=== PATIENT | male | born 1930 | race Caucasian/White ===

== ENCOUNTER 2020-03-24 17:13 | Inpatient (IN) ==
[2020-03-24] MEDS ORDERED: Acetaminophen 325 MG TABLET PO PRN (19:19)
[2020-03-24] MEDS ORDERED: Naloxone 0.4 MG/ML INJ IVP PRN (19:19)
[2020-03-24] MEDS ORDERED: Ondansetron 4 MG/2 ML VIAL IVP PRN (19:19)
[2020-03-24] MEDS ORDERED: Ringers Solution, Lactated 1,000 ML IVC SCH (19:30)
[2020-03-24 21:51] LABS: Protein/Creatinine Ratio,Urine 0.27 mg/mg (0.00-0.20); Sodium, Urine 31.3 mEq/L
[2020-03-24] MEDS ORDERED: Perflutren Lipid Microsphere 1.3 ML in 0.9 % Sodium Chloride 8.7 ML IVP PRN (21:58)
[2020-03-24] MEDS ORDERED: Enoxaparin Weight Dosing SQ SCH (22:00)
[2020-03-25] MEDS ORDERED: *HR* Enoxaparin 80 MG/0.8 ML SYRINGE SQ SCH (06:00)
[2020-03-25 06:09] LABS: INR 1.2; Prothrombin Time 14.2 Seconds (9.4-12.1)
[2020-03-25 06:23] LABS: Alanine Aminotransferase 16 Units/L (7-52); Albumin 3.6 g/dL (3.5-5.7); Albumin/Globulin Ratio 1.2 (1.1-2.2); Alkaline Phosphatase 53 Units/L (34-104); Aspartate Amino Transferase 34 Units/L (13-39); BUN/Creatinine Ratio 28 (6-26); Blood Urea Nitrogen 33 mg/dL (8-23); Calcium 8.9 mg/dL (8.6-10.3); Carbon Dioxide 26 mEq/L (23-29); Chloride 101 mEq/L (98-107); Chol/HDL Ratio 3.7 (0-4.9); Cholesterol 115 mg/dL (< 200); Glucose 157 mg/dL (70-105); HDL Cholesterol 31 mg/dL (40-59); LDL Cholesterol,Calculated 66 mg/dL (< 100); Lactate Dehydrogenase 250 Units/L (140-271); Magnesium 2.1 mg/dL (1.6-2.6); Osmolality,Calculated 297 (280-300); Phosphorous 3.5 mg/dL (2.7-4.5); Potassium 4.5 mEq/L (3.5-5.1); Sodium 138 mEq/L (136-145); Total Protein 6.6 g/dL (6.4-8.9); Triglycerides 89 mg/dL (< 150); eGFR For African Americans > 60 (> 60); eGFR For Non-African Americans 58 (> 60)
[2020-03-25 06:26] LABS: Basophils % 0.1 %; Hematocrit 50.3 % (37.5-50.1); Immature Granulocytes % 0.3 % (0-4); Immature Platelets 9.5 % (1.1-6.1); Lymphocytes # 1.7 K/mcL (0.6-4.6); Mean Corpuscular HGB Conc 31.8 g/dL (31.6-35.5); Mean Corpuscular Hemoglobin 30.2 pg (28.0-33.3); Mean Corpuscular Volume 94.9 fL (83.0-100.0); Mean Platelet Volume 11.5 fL (9.4-12.4); Monocytes # 0.3 K/mcL (0.0-1.3); Monocytes % 3.5 %; Neutrophils # 7.2 K/mcL (1.6-8.9); Platelet Count 130 K/mcL (140-400); Red Cell Distribution Width 14.6 % (11.5-14.5); Segmented Neutrophils % 78.1 %; White Blood Count 9.3 K/mcL (4.3-11.1)
[2020-03-25 06:36] LABS: Ferritin 366 ng/mL (20-250)
[2020-03-25 08:59] LABS: C-Reactive Protein 163 mg/L (Less than 10)
[2020-03-25] MEDS: Metoprolol XL (24 HR) Succ 25 MG TAB.ER.24H PO SCH (09:19)
[2020-03-25] MEDS: Dexamethasone Sodium Phos/PF 10 MG/ML VIAL IVP SCH (09:19)
[2020-03-25] MEDS: Ipratropium 1 PUFF INHALER IH SCH ×5 (10:25→23:21)
[2020-03-25] MEDS: cefTRIAXone 1,000 MG in Water for inj. (sterile) 10 ML IVP SCH (17:15)
[2020-03-25] MEDS: Azithromycin 500 MG in 0.9 % Sodium Chloride 250 ML IVPB SCH (17:16)
[2020-03-25] MEDS: *HR* Enoxaparin 100 MG/ML SYRINGE SQ SCH (17:19)
[2020-03-26] MEDS: Ipratropium 1 PUFF INHALER IH SCH ×6 (03:41→23:12)
[2020-03-26 06:14] LABS: Basophils % 0.1 %; Hematocrit 47.3 % (37.5-50.1); Immature Granulocytes % 0.5 % (0-4); Lymphocytes # 1.2 K/mcL (0.6-4.6); Lymphocytes % 8.4 %; Mean Corpuscular HGB Conc 31.7 g/dL (31.6-35.5); Mean Corpuscular Hemoglobin 30.2 pg (28.0-33.3); Mean Corpuscular Volume 95.2 fL (83.0-100.0); Mean Platelet Volume 12.3 fL (9.4-12.4); Monocytes # 0.9 K/mcL (0.0-1.3); Monocytes % 6.3 %; Neutrophils # 12.4 K/mcL (1.6-8.9); Platelet Count 139 K/mcL (140-400); Red Blood Count 4.97 M/mcL (4.19-5.50); Red Cell Distribution Width 14.6 % (11.5-14.5); Segmented Neutrophils % 84.7 %
[2020-03-26 06:15] LABS: White Blood Count 14.6 K/mcL (4.3-11.1)
[2020-03-26] MEDS: *HR* Enoxaparin 100 MG/ML SYRINGE SQ SCH ×2 (06:16→17:07)
[2020-03-26 06:39] LABS: Alanine Aminotransferase 34 Units/L (7-52); Albumin 3.4 g/dL (3.5-5.7); Albumin/Globulin Ratio 1.2 (1.1-2.2); Alkaline Phosphatase 59 Units/L (34-104); Aspartate Amino Transferase 67 Units/L (13-39); BUN/Creatinine Ratio 38 (6-26); Bilirubin,Total 0.9 mg/dL (0.3-1.0); Blood Urea Nitrogen 39 mg/dL (8-23); Calcium 8.6 mg/dL (8.6-10.3); Carbon Dioxide 23 mEq/L (23-29); Chloride 102 mEq/L (98-107); Globulin 2.9 g/dL (2.4-3.5); Glucose 130 mg/dL (70-105); Osmolality,Calculated 297 (280-300); Potassium 3.9 mEq/L (3.5-5.1); Sodium 138 mEq/L (136-145); Total Protein 6.3 g/dL (6.4-8.9); eGFR For African Americans > 60 (> 60); eGFR For Non-African Americans > 60 (> 60)
[2020-03-26] MEDS ORDERED: Furosemide 20 MG/2 ML VIAL IVP ONE (07:27)
[2020-03-26] MEDS: Famotidine 20 MG TABLET PO SCH (07:47)
[2020-03-26] MEDS: amLODIPine 5 MG TABLET PO SCH (07:47)
[2020-03-26] MEDS: cefTRIAXone 1,000 MG in Water for inj. (sterile) 10 ML IVP SCH (07:48)
[2020-03-26] MEDS: Metoprolol XL (24 HR) Succ 25 MG TAB.ER.24H PO SCH (07:48)
[2020-03-26] MEDS: Dexamethasone Sodium Phos/PF 10 MG/ML VIAL IVP SCH (07:48)
[2020-03-26] MEDS ORDERED: Dexamethasone 4 MG/ML VIAL IVP ONE (10:11)
[2020-03-26] MEDS ORDERED: Furosemide 40 MG/4 ML VIAL IVP ONE (10:11)
[2020-03-26] MEDS ORDERED: Isovue-370 500 ML BOTTLE IVP ONE (12:15)
[2020-03-26] MEDS: Azithromycin 500 MG in 0.9 % Sodium Chloride 250 ML IVPB SCH (15:21)
[2020-03-26] MEDS ORDERED: Remdesivir 200 MG in 0.9 % Sodium Chloride 100 ML IVPB ONE (16:00)
[2020-03-26] MEDS ORDERED: Melatonin 3 MG TABLET PO ONE (20:17)
[2020-03-27 00:38] LABS: ABG Base Excess 5 mEq/L (-2 to 3); ABG HCO3 29 mEq/L (21-27); ABG Oxygen Saturation 81 % (95-98); ABG PCO2 42 mmHg (35-45); ABG PH 7.45 pH Units (7.32-7.45); ABG PO2 44 mmHg (85-104); ABG TCO2 31 mEq/L (20-26)
[2020-03-27] MEDS ORDERED: Furosemide 40 MG/4 ML VIAL IVP ONE (01:05)
[2020-03-27] MEDS ORDERED: Dexamethasone 4 MG/ML VIAL IVP ONE (01:07)
[2020-03-27] MEDS: Ipratropium 1 PUFF INHALER IH SCH ×6 (04:01→22:54)
[2020-03-27 04:23] LABS: ABG Base Excess 4 mEq/L (-2 to 3); ABG HCO3 29 mEq/L (21-27); ABG Oxygen Saturation 90 % (95-98); ABG PCO2 44 mmHg (35-45); ABG PH 7.44 pH Units (7.32-7.45); ABG PO2 56 mmHg (85-104); ABG TCO2 31 mEq/L (20-26)
[2020-03-27] MEDS: *HR* Enoxaparin 100 MG/ML SYRINGE SQ SCH ×2 (05:16→17:04)
[2020-03-27 05:24] LABS: Basophils % 0.1 %; Hemoglobin 15.4 g/dL (12.9-16.9); Immature Granulocytes % 0.4 % (0-4); Lymphocytes # 1.4 K/mcL (0.6-4.6); Lymphocytes % 11.7 %; Mean Corpuscular HGB Conc 32.1 g/dL (31.6-35.5); Mean Corpuscular Hemoglobin 30.1 pg (28.0-33.3); Mean Corpuscular Volume 93.8 fL (83.0-100.0); Mean Platelet Volume 12.1 fL (9.4-12.4); Monocytes # 0.6 K/mcL (0.0-1.3); Monocytes % 5.2 %; Neutrophils # 9.9 K/mcL (1.6-8.9); Platelet Count 148 K/mcL (140-400); Red Blood Count 5.12 M/mcL (4.19-5.50); Red Cell Distribution Width 14.8 % (11.5-14.5); Segmented Neutrophils % 82.6 %
[2020-03-27 05:25] LABS: INR 1.3; Prothrombin Time 14.4 Seconds (9.4-12.1)
[2020-03-27 05:55] LABS: Alanine Aminotransferase 72 Units/L (7-52); Albumin 3.4 g/dL (3.5-5.7); Albumin/Globulin Ratio 1.1 (1.1-2.2); Alkaline Phosphatase 60 Units/L (34-104); Aspartate Amino Transferase 117 Units/L (13-39); BUN/Creatinine Ratio 35 (6-26); Blood Urea Nitrogen 38 mg/dL (8-23); Calcium 8.6 mg/dL (8.6-10.3); Chloride 100 mEq/L (98-107); Globulin 3.1 g/dL (2.4-3.5); Glucose 138 mg/dL (70-105); Osmolality,Calculated 297 (280-300); Potassium 4.1 mEq/L (3.5-5.1); Sodium 138 mEq/L (136-145); Total Protein 6.5 g/dL (6.4-8.9); eGFR For African Americans > 60 (> 60); eGFR For Non-African Americans > 60 (> 60)
[2020-03-27 06:00] LABS: Carbon Dioxide 28 mEq/L (23-29)
[2020-03-27] MEDS: amLODIPine 5 MG TABLET PO SCH (07:44)
[2020-03-27] MEDS: cefTRIAXone 1,000 MG in Water for inj. (sterile) 10 ML IVP SCH (07:45)
[2020-03-27] MEDS: Metoprolol XL (24 HR) Succ 25 MG TAB.ER.24H PO SCH (07:45)
[2020-03-27] MEDS: Famotidine 20 MG TABLET PO SCH (07:45)
[2020-03-27] MEDS: Furosemide 40 MG/4 ML VIAL IVP SCH (07:45)
[2020-03-27] MEDS ORDERED: Dexamethasone Sodium Phos/PF 10 MG/ML VIAL IVP SCH (09:00)
[2020-03-27] MEDS: Remdesivir 100 MG in 0.9 % Sodium Chloride 100 ML IVPB SCH (15:57)
[2020-03-27] MEDS: Azithromycin 500 MG in 0.9 % Sodium Chloride 250 ML IVPB SCH (17:04)
[2020-03-27] MEDS: Budesonide/Formoterol 160/4.5 1 PUFF INH IH SCH (22:54)
[2020-03-28 02:28] LABS: Basophils % 0.1 %; Hematocrit 45.9 % (37.5-50.1); Hemoglobin 15.1 g/dL (12.9-16.9); Immature Granulocytes % 0.3 % (0-4); Lymphocytes # 1.3 K/mcL (0.6-4.6); Lymphocytes % 10.8 %; Mean Corpuscular HGB Conc 32.9 g/dL (31.6-35.5); Mean Corpuscular Hemoglobin 30.4 pg (28.0-33.3); Mean Corpuscular Volume 92.4 fL (83.0-100.0); Mean Platelet Volume 12.4 fL (9.4-12.4); Monocytes # 0.9 K/mcL (0.0-1.3); Monocytes % 7.5 %; Platelet Count 146 K/mcL (140-400); Red Blood Count 4.97 M/mcL (4.19-5.50); Red Cell Distribution Width 14.6 % (11.5-14.5); Segmented Neutrophils % 81.3 %; White Blood Count 12.4 K/mcL (4.3-11.1)
[2020-03-28 02:35] LABS: INR 1.3; Prothrombin Time 14.8 Seconds (9.4-12.1)
[2020-03-28 02:52] LABS: Alanine Aminotransferase 69 Units/L (7-52); Albumin 3.1 g/dL (3.5-5.7); Albumin/Globulin Ratio 1.1 (1.1-2.2); Alkaline Phosphatase 57 Units/L (34-104); Aspartate Amino Transferase 92 Units/L (13-39); BUN/Creatinine Ratio 45 (6-26); Bilirubin,Total 0.7 mg/dL (0.3-1.0); Blood Urea Nitrogen 47 mg/dL (8-23); C-Reactive Protein 112 mg/L (Less than 10); Calcium 8.2 mg/dL (8.6-10.3); Carbon Dioxide 28 mEq/L (23-29); Chloride 103 mEq/L (98-107); Globulin 2.7 g/dL (2.4-3.5); Glucose 138 mg/dL (70-105); Lactate Dehydrogenase 476 Units/L (140-271); Magnesium 2.5 mg/dL (1.6-2.6); Osmolality,Calculated 302 (280-300); Phosphorous 2.8 mg/dL (2.7-4.5); Sodium 139 mEq/L (136-145); Total Protein 5.8 g/dL (6.4-8.9); eGFR For African Americans > 60 (> 60); eGFR For Non-African Americans > 60 (> 60)
[2020-03-28 03:16] LABS: Ferritin 605 ng/mL (20-250)
[2020-03-28] MEDS: Ipratropium 1 PUFF INHALER IH SCH ×6 (03:56→23:12)
[2020-03-28] MEDS: *HR* Enoxaparin 100 MG/ML SYRINGE SQ SCH ×2 (05:03→18:42)
[2020-03-28] MEDS: Budesonide/Formoterol 160/4.5 1 PUFF INH IH SCH ×2 (07:28→19:49)
[2020-03-28] MEDS: amLODIPine 5 MG TABLET PO SCH (09:13)
[2020-03-28] MEDS: Pantoprazole 40 MG VIAL IVP SCH (09:14)
[2020-03-28] MEDS: Metoprolol XL (24 HR) Succ 25 MG TAB.ER.24H PO SCH (09:14)
[2020-03-28] MEDS: Furosemide 40 MG/4 ML VIAL IVP SCH (09:15)
[2020-03-28] MEDS: cefTRIAXone 1,000 MG in Water for inj. (sterile) 10 ML IVP SCH (09:15)
[2020-03-28] MEDS: Dexamethasone Sodium Phos/PF 10 MG/ML VIAL IVP SCH (10:22)
[2020-03-28] MEDS: Remdesivir 100 MG in 0.9 % Sodium Chloride 100 ML IVPB SCH (16:43)
[2020-03-28] MEDS: Azithromycin 500 MG in 0.9 % Sodium Chloride 250 ML IVPB SCH (18:42)
[2020-03-29 03:21] LABS: Basophils % 0.3 %; Hematocrit 45.1 % (37.5-50.1); Hemoglobin 14.5 g/dL (12.9-16.9); INR 1.3; Immature Granulocytes % 0.4 % (0-4); Lymphocytes # 1.2 K/mcL (0.6-4.6); Lymphocytes % 10.6 %; Mean Corpuscular HGB Conc 32.2 g/dL (31.6-35.5); Mean Corpuscular Volume 93.2 fL (83.0-100.0); Mean Platelet Volume 12.6 fL (9.4-12.4); Monocytes # 0.8 K/mcL (0.0-1.3); Monocytes % 6.9 %; Neutrophils # 9.5 K/mcL (1.6-8.9); Platelet Count 188 K/mcL (140-400); Prothrombin Time 15.3 Seconds (9.4-12.1); Red Blood Count 4.84 M/mcL (4.19-5.50); Red Cell Distribution Width 14.6 % (11.5-14.5); Segmented Neutrophils % 81.8 %; White Blood Count 11.6 K/mcL (4.3-11.1)
[2020-03-29 03:36] LABS: Alanine Aminotransferase 63 Units/L (7-52); Albumin 3.2 g/dL (3.5-5.7); Albumin/Globulin Ratio 1.1 (1.1-2.2); Alkaline Phosphatase 64 Units/L (34-104); Aspartate Amino Transferase 67 Units/L (13-39); BUN/Creatinine Ratio 49 (6-26); Bilirubin,Total 0.9 mg/dL (0.3-1.0); Blood Urea Nitrogen 55 mg/dL (8-23); C-Reactive Protein 108 mg/L (Less than 10); Calcium 8.5 mg/dL (8.6-10.3); Carbon Dioxide 29 mEq/L (23-29); Chloride 98 mEq/L (98-107); Globulin 2.9 g/dL (2.4-3.5); Glucose 140 mg/dL (70-105); Lactate Dehydrogenase 595 Units/L (140-271); Magnesium 2.8 mg/dL (1.6-2.6); Osmolality,Calculated 301 (280-300); Phosphorous 3.1 mg/dL (2.7-4.5); Potassium 4.5 mEq/L (3.5-5.1); Sodium 137 mEq/L (136-145); Total Protein 6.1 g/dL (6.4-8.9); eGFR For African Americans > 60 (> 60); eGFR For Non-African Americans > 60 (> 60)
[2020-03-29] MEDS: Ipratropium 1 PUFF INHALER IH SCH ×6 (03:43→23:49)
[2020-03-29 03:54] LABS: Ferritin 807 ng/mL (20-250)
[2020-03-29] MEDS: *HR* Enoxaparin 100 MG/ML SYRINGE SQ SCH ×2 (05:53→18:06)
[2020-03-29] MEDS: Budesonide/Formoterol 160/4.5 1 PUFF INH IH SCH ×2 (08:16→19:56)
[2020-03-29] MEDS: Metoprolol XL (24 HR) Succ 25 MG TAB.ER.24H PO SCH (08:46)
[2020-03-29] MEDS: amLODIPine 5 MG TABLET PO SCH (08:47)
[2020-03-29] MEDS: Finasteride 5 MG TABLET PO SCH (08:48)
[2020-03-29] MEDS: Multivit/Ca/Min/Fe/FA 1 TAB TABLET PO SCH (08:49)
[2020-03-29] MEDS: cefTRIAXone 1,000 MG in Water for inj. (sterile) 10 ML IVP SCH (08:49)
[2020-03-29] MEDS: Pantoprazole 40 MG VIAL IVP SCH (08:50)
[2020-03-29] MEDS: Dexamethasone Sodium Phos/PF 10 MG/ML VIAL IVP SCH (08:51)
[2020-03-29] MEDS: Furosemide 40 MG/4 ML VIAL IVP SCH (08:52)
[2020-03-29] MEDS: Remdesivir 100 MG in 0.9 % Sodium Chloride 100 ML IVPB SCH (16:10)
[2020-03-29] MEDS ORDERED: traZODone 50 MG TABLET PO PRN (17:31)
[2020-03-29] MEDS: Azithromycin 500 MG in 0.9 % Sodium Chloride 250 ML IVPB SCH (18:03)
[2020-03-29] MEDS: Saline Nasal Spray 44 ML BOTTLE NS SCH ×4 (18:07→23:17)
[2020-03-30] MEDS: Saline Nasal Spray 44 ML BOTTLE NS SCH ×7 (01:07→15:55)
[2020-03-30] MEDS: Ipratropium 1 PUFF INHALER IH SCH ×4 (03:34→14:56)
[2020-03-30] MEDS: *HR* Enoxaparin 100 MG/ML SYRINGE SQ SCH (05:02)
[2020-03-30 06:05] LABS: Basophils # 0.1 K/mcL (0.0-0.2); Basophils % 0.7 %; Hematocrit 46.4 % (37.5-50.1); Hemoglobin 14.9 g/dL (12.9-16.9); Immature Granulocytes % 1.1 % (0-4); Lymphocytes # 1.4 K/mcL (0.6-4.6); Lymphocytes % 12.4 %; Mean Corpuscular HGB Conc 32.1 g/dL (31.6-35.5); Mean Corpuscular Hemoglobin 30.6 pg (28.0-33.3); Mean Corpuscular Volume 95.3 fL (83.0-100.0); Mean Platelet Volume 12.4 fL (9.4-12.4); Monocytes # 0.8 K/mcL (0.0-1.3); Monocytes % 7.2 %; Neutrophils # 8.8 K/mcL (1.6-8.9); Platelet Count 192 K/mcL (140-400); Red Blood Count 4.87 M/mcL (4.19-5.50); Red Cell Distribution Width 14.7 % (11.5-14.5); Segmented Neutrophils % 78.6 %; White Blood Count 11.2 K/mcL (4.3-11.1)
[2020-03-30 06:12] LABS: INR 1.3; Prothrombin Time 15.1 Seconds (9.4-12.1)
[2020-03-30 06:34] LABS: Platelet Estimate Normal (Normal); Reactive Lymphocytes Present (Not Present)
[2020-03-30 06:43] LABS: Alanine Aminotransferase 56 Units/L (7-52); Albumin 3.4 g/dL (3.5-5.7); Albumin/Globulin Ratio 1.3 (1.1-2.2); Alkaline Phosphatase 75 Units/L (34-104); Aspartate Amino Transferase 53 Units/L (13-39); BUN/Creatinine Ratio 51 (6-26); Blood Urea Nitrogen 56 mg/dL (8-23); Calcium 8.6 mg/dL (8.6-10.3); Carbon Dioxide 26 mEq/L (23-29); Chloride 99 mEq/L (98-107); Globulin 2.7 g/dL (2.4-3.5); Glucose 140 mg/dL (70-105); Lactate Dehydrogenase 656 Units/L (140-271); Magnesium 2.8 mg/dL (1.6-2.6); Osmolality,Calculated 300 (280-300); Phosphorous 2.7 mg/dL (2.7-4.5); Potassium 4.3 mEq/L (3.5-5.1); Sodium 136 mEq/L (136-145); Total Protein 6.1 g/dL (6.4-8.9); eGFR For African Americans > 60 (> 60); eGFR For Non-African Americans > 60 (> 60)
[2020-03-30 06:45] LABS: Ferritin 772 ng/mL (20-250)
[2020-03-30 08:04] LABS: C-Reactive Protein 72 mg/L (Less than 10)
[2020-03-30] MEDS: Budesonide/Formoterol 160/4.5 1 PUFF INH IH SCH (08:09)
[2020-03-30] MEDS: Pantoprazole 40 MG VIAL IVP SCH (09:26)
[2020-03-30] MEDS: Dexamethasone Sodium Phos/PF 10 MG/ML VIAL IVP SCH (09:26)
[2020-03-30] MEDS: Furosemide 40 MG/4 ML VIAL IVP SCH (09:26)
[2020-03-30] MEDS: amLODIPine 5 MG TABLET PO SCH (09:27)
[2020-03-30] MEDS: cefTRIAXone 1,000 MG in Water for inj. (sterile) 10 ML IVP SCH (09:27)
[2020-03-30] MEDS: Metoprolol XL (24 HR) Succ 25 MG TAB.ER.24H PO SCH (09:29)
[2020-03-30] MEDS: Multivit/Ca/Min/Fe/FA 1 TAB TABLET PO SCH (09:29)
[2020-03-30] MEDS: Finasteride 5 MG TABLET PO SCH (09:29)
[2020-03-30] MEDS ORDERED: Morphine Sulfate Oral CONC 10 MG/0.5 ML ORAL.SYG SL PRN ×2 (10:33→13:38)
[2020-03-30 11:51] VITALS: BP 159/78
[2020-03-30] MEDS ORDERED: *HR* LORazepam 2 MG/ML VIAL IVP PRN (14:06)
[2020-03-30] MEDS: *HR* FentaNYL (PF) 100 MCG/2 ML VIAL IVP PRN ×4 (14:47→16:36)
[2020-03-30] MEDS: Azithromycin 500 MG in 0.9 % Sodium Chloride 250 ML IVPB SCH (15:55)
[2020-03-31] MEDS ORDERED: *HR* Enoxaparin 40 MG/0.4 ML SYRINGE SQ SCH (12:00)
== END 2020-03-30 18:49 | disposition expired | DRG 177 ==
LOC: 2NENU → SUATTDRO 03-25 17:06
PROVIDERS: ADMIT Internal Medicine; ATTEND Internal Medicine